=== PATIENT | female | born 1990 | race Caucasian/White ===

== ENCOUNTER 2016-05-27 12:06 | Emergency (ER) | payer OTHER ==
[2016-05-27 13:45] VITALS: BP 106/61
== END 2016-05-27 13:45 | disposition home or self-care (01) ==
LOC: ED 12:06
DX: J20.9 Acute bronchitis, unspecified (principal); F17.210 Nicotine dependence, cigarettes, uncomplicated; Z71.6 Tobacco abuse counseling
CPT/HCPCS: 99406; J2930; J7613; J7644

== ENCOUNTER 2016-11-17 21:18 | Emergency (ER) | payer OTHER ==
[2016-11-17 22:37] VITALS: BP 124/65
== END 2016-11-17 22:37 | disposition home or self-care (01) ==
LOC: ED 21:18
DX: O99.612 Diseases of the digestive system complicating pregnancy, second trimester (principal); K02.9 Dental caries, unspecified; Z3A.14 14 weeks gestation of pregnancy